=== PATIENT | male | born 1990 | race Caucasian/White ===

== ENCOUNTER 2018-10-03 13:33 | Emergency (ER) | payer MEDICAID ==
[2018-10-03] MEDS ORDERED: LEVETIRACETAM 500 MG TAB PO ONE (14:00)
[2018-10-03] MEDS ORDERED: ESCI20TA PO (14:25)
[2018-10-03] MEDS ORDERED: LEVE500T8 PO (14:25)
[2018-10-03] MEDS ORDERED: LEVE750T70 PO (15:51)
[2018-10-03] MEDS ORDERED: ALBU8.5H8 INH (15:51)
[2018-10-03] MEDS ORDERED: AZIT250T PO (15:51)
--- NOTE | 2018-10-03 15:54 | ERD ---
ER Documentation Chief Complaint Chief Complaint seizure HPI This is a 28-year-old male with a history of long-standing seizure disorder takes 500 mg of Keppra twice daily and states he has been taking his medication like he supposed to. He had a seizure just prior to arrival that was witnessed by a friend was general tonic-clonic for about 1 minute. He states that he has had a recent illness with cough with occasional productive sputum, no fever no GI symptoms no neurological complaints. He said he fell and apparently hit his head when he had a seizure today but does not have any pain at all while he is here ROS All systems reviewed and are negative except as per history of present illness. Medications Home Meds Active Scripts Albuterol Sulfate* (Proair HFA*) 8.5 Gm Hfa.aer.ad, 2 PUFF INH Q4, #1 INHALER Prov:YARIEL CAPUTO DO 10/03/18 Azithromycin* (Zithromax*) 250 Mg Tablet, 250 MG PO .ZPACK DIRECTED, #6 TAB TAKE 500 MG (2 TABS) THE FIRST DAY THEN 250 MG (1 TAB) DAYS 2-5 Prov:YARIEL CAPUTO DO 10/03/18 Levetiracetam* (Keppra*) 750 Mg Tablet, 750 MG PO BID, #60 TAB Prov:YARIEL CAPUTO DO 10/03/18 Reported Medications Escitalopram Oxalate* (Lexapro*) 20 Mg Tablet, 20 MG PO DAILY, #30 TAB 10/03/18 Levetiracetam* (Levetiracetam*) 500 Mg Tablet, 500 MG PO BID, TAB 10/03/18 Allergies Allergies: Coded Allergies: No Known Allergy (Unverified , 10/03/18) PMhx/Soc History of Surgery: No Anesthesia Reaction: No Hx Neurological Disorder: Yes (SZ) Hx Cardiac Disorders: No Hx Psychiatric Problems: No Hx Miscellaneous Medical Probl: No Hx Alcohol Use: Yes Hx Substance Use: No Hx Tobacco Use: No Smoking Status: Never smoker FmHx Family History: No coronary disease Physical Exam Vitals Vital Signs Date Temp Pulse Resp B/P (MAP) Pulse Ox O2 O2 Flow FiO2 Time Delivery Rate 10/03/18 56 20 109/67 99 Room Air 15:31 (81) Physical Exam Const: Well-developed, well-nourished Head: Atraumatic, normocephalic Eyes: Normal Conjunctiva, PERRLA, EOMI, normal sclera, no nystagmus ENT: Normal External Ears, Nose and Mouth, moist mucus membranes. Neck: Full range of motion. No meningismus, no lymphadenopathy. Resp: Clear to auscultation bilaterally, no wheezing, rhonchi, rales Cardio: Regular rate and rhythm, no murmurs, S1 S2 present Abd: Soft, non tender x 4, non distended. Normal bowel sounds, no guarding or rebound, no pulsitile abdominal masses or bruits Skin: No petechiae or rashes, no ecchymosis , no maculopapular rash Back: No midline or flank tenderness Ext: No cyanosis, or edema, FROM x 4, normal inspection, n eurovascularly intact x 4 Neur: Awake and alert, STR 5/5 x 4, sensation intact x 4, no focal findings, cerebellum intact Psych: Normal Mood and Affect Results 24 hrs Current Medications Medications Dose Sig/Monica Start Time Status Last (Trade) Ordered Route PRN Stop Time Admin Dose Reason Admin 1,000 mg ONCE ONCE 10/03/18 DC 10/03/18 Levetiracetam PO 14:00 10/03/18 14:25 (Keppra) 14:01 Procedures/MDM MR #: [id number] DOS: 10/03/18 1342 Ordering MD: YARIEL CAPUTO DO Location: E/R Room/Bed: PROCEDURE: CT Brain without. CLINICAL INDICATION: Seizure TECHNIQUE: A CT of the brain was performed utilizing axial sections from the skull base through the vertex without contrast. The scan was reviewed in soft tissue brain and high frequency resolution bone algorithm windows. Images were reviewed on a high-resolution PACS workstation. The exam CTDI = 48.03 mGy, and the DLP = 798.57 mGy-cm. One or more of the following dose reduction techniques were used: Automated exposure control, adjustment of the mA and / or kV according to patient size, or use of iterative reconstruction technique. DICOM images are available. COMPARISON: None available FINDINGS: The ventricles are normal in size and midline in position. There is no intracranial hemorrhage, midline shift, or mass effect. No abnormal extra-axial fluid collections are identified. The ledezma-white differentiation is well preserved. The basal cisterns are patent. The posterior fossa is unremarkable. The visualized portions of the orbits are unremarkable. The paranasal sinuses and mastoid air cells are clear. No calvarial fracture or abnormality are identified. The soft tissues are unremarkable. IMPRESSION: Unremarkable CT of the brain. RPTAT: HH .Jannette Pacheco MD, Date Time Electronically viewed and signed by .Jannette Pacheco MD, MD on 10/03/2018 15:08 .G/ CC: YARIEL CAPUTO DO [id number] MR #: [id number] DOS: 10/03/18 1342 Ordering MD: YARIEL CAPUTO DO Location: E/R Room/Bed: PROCEDURE: XR Chest. CLINICAL INDICATION: Seizure TECHNIQUE: Single frontal view of the chest was obtained COMPARISON: None FINDINGS: The heart and mediastinum are within normal limits. The lungs are clear. There is no pleural effusion or pneumothorax. RPTAT: AA IMPRESSION: No acute disease. .Zachery Holden MD, MD Date Time Electronically viewed and signed by .Zachery Holden MD, MD on 10/03/2018 14:43 .S/ CC: YARIEL CAPUTO DO [id number] Patient has a lowered seizure threshold likely due to having bronchitis. I will increase his Keppra to 750 twice daily and discharged with Zithromax and albuterol Departure Diagnosis: Primary Impression: Bronchitis Additional Impression: Seizure disorder Condition: Stable Patient Instructions: Bronchitis, Antiobiotic Treatment (Adult), Seizure, Recurrent [Adult] LEKKOS,APOSTOLOS A. DO October 03, 2018 15:54
[2018-10-03 16:32] VITALS: BP 117/62; PULSE 58; RESP 20
== END 2018-10-03 16:36 | disposition home or self-care (01) ==
LOC: E/R 13:33
DX: J40 Bronchitis, not specified as acute or chronic (principal); R40.2142 Coma scale, eyes open, spontaneous, at arrival to emergency department; R40.2362 Coma scale, best motor response, obeys commands, at arrival to emergency department; R40.2252 Coma scale, best verbal response, oriented, at arrival to emergency department; G40.909 Epilepsy, unspecified, not intractable, without status epilepticus
CPT/HCPCS: 70450; 71045; Z7502; Z7610